=== PATIENT | male | born 1995 | race Caucasian/White ===

== ENCOUNTER 2016-06-23 03:48 | Emergency (ER) | payer SELFPAY | END 2016-06-23 05:00 | disposition home or self-care (01) | LOC: D.ER 03:48 | DX: M54.9 Dorsalgia, unspecified (principal); V89.2XXA Person injured in unspecified motor-vehicle accident, traffic, initial encounter; Y93.89 Activity, other specified; Y92.410 Unspecified street and highway as the place of occurrence of the external cause ==

== ENCOUNTER 2017-10-26 13:06 | Emergency (ER) | payer MEDICAID | END 2017-10-26 16:16 | disposition home or self-care (01) | LOC: D.ER 13:06 | DX: S41.111A Laceration without foreign body of right upper arm, initial encounter (principal); X99.1XXA Assault by knife, initial encounter; Y93.89 Activity, other specified; Y92.019 Unspecified place in single-family (private) house as the place of occurrence of the external cause ==